=== PATIENT | female | born 1960 | race Caucasian/White ===

== ENCOUNTER → 2022-04-25 | Outpatient (CLI) | payer OTHER | END | disposition home or self-care (01) | LOC: RAH 12:15 | PROVIDERS: ATTEND Internal Medicine Cardiovascular Disease | DX: Z13.6 Encounter for screening for cardiovascular disorders (principal); R00.2 Palpitations | CPT/HCPCS: 75571 ==

== ENCOUNTER → 2022-05-15 | Outpatient (CLI) | payer BC | END | disposition home or self-care (01) | LOC: SHCH 12:42 | PROVIDERS: ATTEND Internal Medicine Cardiovascular Disease | DX: I36.1 Nonrheumatic tricuspid (valve) insufficiency (principal) | CPT/HCPCS: 93306 ==

== ENCOUNTER → 2022-05-16 | Outpatient (CLI) | payer BC | END | disposition home or self-care (01) | LOC: SHCH 07:56 | PROVIDERS: ATTEND Internal Medicine Cardiovascular Disease | DX: R00.2 Palpitations (principal) | CPT/HCPCS: 93978 ==

== ENCOUNTER 2022-06-03 15:38 | Emergency (ER) | payer BC ==
[~2022-06-03] VITALS: Ht 170.2 cm; Wt 79.4 kg
[2022-06-03 16:19] LABS: BASOPHILS % (AUTO) 0.4 % (0.0-5.0); EOSINOPHILS % (AUTO) 0.2 % (0.0-8.0); HEMATOCRIT 43.5 % (36-48); LYMPHOCYTES % (AUTO) 12.2 % (21.0-51.0); MEAN CORPUSCULAR HEMOGLOBIN 28.9 pg (27.0-33.0); MEAN CORPUSCULAR HGB CONC 33.3 g/dL (32.0-36.0); MEAN CORPUSCULAR VOLUME 86.8 fL (79-99); MONOCYTES % (AUTO) 4.9 % (3.0-13.0); NEUTROPHILS % (AUTO) 81.8 % (40.0-77.0); PLATELET COUNT (AUTO) 195 K/uL (130-400); RED BLOOD CELL COUNT(AUTO) 5.01 MIL/uL (4.00-5.50); RED CELL DISTRIBUTION WIDTH 13.3 % (11.0-15.5); WHITE BLOOD COUNT (AUTO) 10.4 K/uL (4.8-10.8)
[2022-06-03 16:31] LABS: CREATININE 0.9 mg/dL (0.5-1.5); POTASSIUM 3.7 mmol/L (3.5-5.1)
[2022-06-03 16:37] LABS: ALBUMIN 3.7 g/dL (3.5-5.0); BILIRUBIN,TOTAL 0.5 mg/dL (0.2-1.0); TOTAL PROTEIN, SERUM 7.9 g/dL (6.0-8.3)
[2022-06-03] MEDS ORDERED: 0.9%NACL 1000ML 1,000 ML IV ONE (17:00)
[2022-06-03] MEDS ORDERED: DEXAMETHASONE SOD PHOSPHATE 4 MG/ML 1ML VIAL IVP ONE (17:00)
[2022-06-03] MEDS ORDERED: MECLIZINE HCL 25 MG TABLET PO ONE (17:00)
[2022-06-03] MEDS ORDERED: MECL-160 PO (19:24)
[2022-06-03] MEDS ORDERED: PRED20TA3 PO (19:24)
[2022-06-03] MEDS ORDERED: PROM25TA7 PO (19:24)
[2022-06-03 20:35] VITALS: BP 162/68
== END 2022-06-03 20:54 | disposition home or self-care (01) ==
LOC: EDH 15:38
DX: H81.11 Benign paroxysmal vertigo, right ear (principal); R11.10 Vomiting, unspecified; E86.0 Dehydration; I10 Essential (primary) hypertension; R00.1 Bradycardia, unspecified; T44.7X5A Adverse effect of beta-adrenoreceptor antagonists, initial encounter; Y92.89 Other specified places as the place of occurrence of the external cause; Z98.890 Other specified postprocedural states
CPT/HCPCS: 99284; 96374; 70450; 71045; 96361; 84484; 80053; 85025; 36415; 93005; J1100; J7030

== ENCOUNTER → 2022-06-07 | Outpatient (CLI) | payer BC ==
[~2022-06-07] MED LIST: MECL-160 PO; PRED20TA3 PO; PROM25TA7 PO
[2022-06-07 12:42] LABS: ALBUMIN 3.2 g/dL (3.5-5.0); POTASSIUM 3.6 mmol/L (3.5-5.1); TOTAL PROTEIN, SERUM 6.7 g/dL (6.0-8.3)
== END | disposition home or self-care (01) ==
LOC: LAB 10:56
PROVIDERS: ATTEND Internal Medicine Cardiovascular Disease
DX: I50.32 Chronic diastolic (congestive) heart failure (principal)
CPT/HCPCS: 36415; 80053; 83880

== ENCOUNTER 2022-11-20 18:21 | Emergency (ER) | payer BC ==
[~2022-11-20] VITALS: Ht 165.1 cm; Wt 79.4 kg
[2022-11-20 18:26] VITALS: BP 156/74
[2022-11-20 18:49] LABS: BASOPHILS % (AUTO) 0.7 % (0.0-5.0); EOSINOPHILS % (AUTO) 0.6 % (0.0-8.0); HEMATOCRIT 41.5 % (36-48); LYMPHOCYTES % (AUTO) 18.2 % (21.0-51.0); MEAN CORPUSCULAR HEMOGLOBIN 28.6 pg (27.0-33.0); MEAN CORPUSCULAR HGB CONC 33.7 g/dL (32.0-36.0); MEAN CORPUSCULAR VOLUME 84.7 fL (79-99); MONOCYTES % (AUTO) 20.2 % (3.0-13.0); NEUTROPHILS % (AUTO) 59.9 % (40.0-77.0); PLATELET COUNT (AUTO) 165 K/uL (130-400); RED CELL DISTRIBUTION WIDTH 13.5 % (11.0-15.5); WHITE BLOOD COUNT (AUTO) 5.4 K/uL (4.8-10.8)
[2022-11-20 19:02] LABS: CREATININE 0.9 mg/dL (0.5-1.5); POTASSIUM 3.3 mmol/L (3.5-5.1)
[2022-11-20 19:08] LABS: ALBUMIN 3.4 g/dL (3.5-5.0)
[2022-11-20] MEDS ORDERED: ONDA-104 PO (20:04)
[2022-11-20] MEDS ORDERED: NIRM1TAB PO (20:04)
[2022-11-20] MEDS ORDERED: ALBU90AE2 IH (20:04)
[2022-11-20] MEDS ORDERED: IBUP-1493 PO (20:04)
[2022-11-20 20:07] LABS: APPEARANCE,URINE CLOUDY (CLEAR); BILIRUBIN,URINE NEGATIVE (NEGATIVE); COLOR,URINE YELLOW (YELLOW); GLUCOSE, URINE (UA) NEGATIVE (NEGATIVE); KETONES,URINE 40 mg/dL (NEGATIVE); LEUKOCYTE ESTERASE ,URINE 500 Leu/uL (NEGATIVE); NITRATE,URINE NEGATIVE (NEGATIVE); PH,URINE 5.5 (5.0-8.0); PROTEIN,URINE 50 mg/dL (NEGATIVE); UROBILINOGEN,URINE 0.2 mg/dL (0.2-1.0)
[2022-11-20 20:10] LABS: BACTERIA,URINE FEW /HPF (None Seen); MUCUS,URINE FEW LPF (None Seen); OTHER CASTS, URINE 1 /LPF (None Seen); SQUAMOUS EPITHELIAL CELL,UR MOD /HPF (0-2); WBC,URINE 26-50 /HPF (0-1)
[2022-11-20] MEDS ORDERED: AZIT500T2 PO (20:16)
== END 2022-11-20 20:39 | disposition home or self-care (01) ==
LOC: EDH 18:21
DX: U07.1 COVID-19 (principal); I11.0 Hypertensive heart disease with heart failure; I50.9 Heart failure, unspecified; I48.91 Unspecified atrial fibrillation; Z79.899 Other long term (current) drug therapy; Z98.890 Other specified postprocedural states
CPT/HCPCS: 99284; 71045; 87635; 83735; 84484 ×2; 80053; 83880; 85025; 85378; 87088; 87804 ×2; 81001; 36415; 93005; C9803

== ENCOUNTER → 2023-01-06 | Outpatient (CLI) | payer BC ==
[~2023-01-06] MED LIST changes: +ALBU90AE2 IH; +AZIT500T2 PO; +IBUP-1493 PO; +NIRM1TAB PO; +ONDA-104 PO
[2023-01-06 16:34] LABS: CREATININE 1.1 mg/dL (0.5-1.5); MAGNESIUM 2.1 mg/dL (1.80-2.40); POTASSIUM 3.8 mmol/L (3.5-5.1)
== END | disposition home or self-care (01) ==
LOC: LAB 13:27
PROVIDERS: ATTEND Physician Assistant
DX: I87.2 Venous insufficiency (chronic) (peripheral) (principal)
CPT/HCPCS: 36415; 80048; 83735; 83880

== ENCOUNTER → 2023-12-08 | Outpatient (CLI) | payer BC ==
[~2023-12-08] MED LIST changes: -MECL-160 PO; +MECL-302 PO
== END | disposition home or self-care (01) ==
LOC: RAH 09:24
PROVIDERS: ATTEND Internal Medicine
DX: R13.19 Other dysphagia (principal); K21.9 Gastro-esophageal reflux disease without esophagitis
CPT/HCPCS: 74240

== ENCOUNTER → 2025-09-08 | Outpatient (CLI) | payer OTHER ==
[~2025-09-08] MED LIST changes: -ALBU90AE2 IH; +ALBU90AE3 IH
--- NOTE | 2025-09-10 10:29 | HMCIMG ---
CHEST 2VWS REASON: ACUTE PHARYNGITIS COMPARISON: Prior study from 11/20/2022 is available. FINDINGS: Two views of the chest were obtained. Lungs are clear. Heart size is normal. There is uncoiling atherosclerotic change of thoracic aorta. There is no pulmonary vascular congestion. Mediastinum and bony thorax appear unremarkable. IMPRESSION: No acute cardiopulmonary process and unchanged from prior study..
--- NOTE | 2025-09-14 16:19 | HMCIMG ---
CR PARANASAL SINUSES, 3 VIEW Clinical Details: Acute pharyngitis. Technique: Three-view plain radiographic examination of the paranasal sinuses was performed. Findings: Bones: No displaced facial fracture detected. Sinuses: No air-fluid level. No paranasal opacification identified. Orbits: No obvious orbital abnormality. No orbital emphysema detected. Soft Tissues: Unremarkable. Additional Findings: Mild deviation of the nasal septum to the left. Impression: * No acute paranasal sinus abnormality evident on plain film examination. * Mild leftward deviation of the nasal septum. /[place]
== END | disposition home or self-care (01) ==
LOC: RAH 11:39
DX: J34.2 Deviated nasal septum (principal); J02.9 Acute pharyngitis, unspecified
CPT/HCPCS: 70220; 71046

== ENCOUNTER → 2025-09-19 | Outpatient (CLI) | payer OTHER ==
--- NOTE | 2025-09-19 15:19 | HMCIMG ---
EXAM: CR left foot, 3 View. CLINICAL HISTORY: PAIN IN LEFT FOOT COMPARISON: None provided. FINDINGS: BONES: No acute fracture or aggressive appearing osseous lesion. JOINTS: The joint spaces appear within normal limits. No dislocation. SOFT TISSUES: The soft tissues are unremarkable. IMPRESSION: No acute osseous abnormality. /Elm Mott
== END | disposition home or self-care (01) ==
LOC: RAH 10:34
PROVIDERS: ATTEND Clinical Nurse Specialist Family Health
DX: M79.672 Pain in left foot (principal); R60.0 Localized edema
CPT/HCPCS: 73630